=== PATIENT | male | born 1990 | race Caucasian/White ===

== ENCOUNTER → 2019-06-14 | Outpatient (CLI) | payer SELFPAY ==
--- NOTE | 2019-06-14 12:46 | Diagnostic Imaging Report ---
PROCEDURE: MRI lumbar spine. TECHNIQUE: Multiplanar, multisequence MRI of the lumbar spine was performed without contrast. INDICATION: Low back pain. Left-sided sciatica. COMPARISON: None. FINDINGS: 5 lumbar type vertebral bodies are visualized with the last well-formed disc space designated L5-S1. No acute fracture or dislocation is seen in the lumbar spine. Alignment is anatomic. Vertebral heights and disc spaces are well-maintained. The bone marrow signal is normal. The conus terminates at the T12-L1 level. No masses are seen associated with the conus or nerve roots of the cauda equina. No epidural collections are identified. Mild degenerative changes are seen in the lumbar spine with disc bulges, facet hypertrophy, and buckling of the ligamentum flavum. T12-L1: No significant spinal canal or foraminal stenosis. L1-L2: No significant spinal canal or foraminal stenosis. L2-L3: No significant spinal canal or foraminal stenosis. L3-L4: Broad-based disc bulge with superimposed central disc protrusion, facet hypertrophy, and buckling of ligamentum flavum results in uaru-fw-jorjdmtw spinal canal narrowing and moderate left and qdxd-ec-nnxialso right foraminal narrowing. L4-L5: Broad-based disc bulge, facet hypertrophy, and buckling of the ligamentum flavum results in no significant spinal canal narrowing and mild right and moderate left foraminal stenosis. L5-S1: Broad-based disc bulge and superimposed right paracentral disc protrusion with annular fissure, facet hypertrophy, and buckling of the ligamentum flavum results in [id number]-[id number] right lateral recess stenosis, no significant spinal canal narrowing and moderate left and brcksxia-vh-asfxie right foraminal stenosis. Paravertebral soft tissues are unremarkable. IMPRESSION: 1. No acute fracture or dislocation in the lumbar spine. 2. Multilevel degenerative changes in the lumbar spine, greatest at L3-L4 and L5-S1. Dictated by: Dictated on workstation # [id number]
== END ==
LOC: RAD 11:08
PROVIDERS: ATTEND Nurse Practitioner Community Health
DX: M54.42 Lumbago with sciatica, left side (principal); M47.897 Other spondylosis, lumbosacral region
CPT/HCPCS: 72148

== ENCOUNTER 2021-05-25 19:30 | Emergency (ER) | payer SELFPAY ==
[~2021-05-25] VITALS: Ht 183 cm; Wt 109.0 kg
[2021-05-25 20:02] VITALS: BP 138/100
[2021-05-25] MEDS ORDERED: CLINDAMYCIN 150 MG (CLEOCIN) CAP PO STA (20:06)
--- NOTE | 2021-05-25 20:06 | ED EENT ---
History of Present Illness General Stated Complaint: SEVERE TOOTH ACHE Source: patient Exam Limitations: no limitations (JOVANNY CASTANON) History of Present Illness Date Seen by Provider: May 25, 2021 Time Seen by Provider: 20:04 Initial Comments Patient is a 31-year-old male who presents ED with right lower dental pain. Patient reports pain since this morning. He reports decay to his right lower molars. Patient with a sharp shooting pain into his neck and ear. Pain with eating. Denies any facial swelling or redness. History of similar pain over the past 2 years. Patient acknowledges that he needs to see a dentist. No pain improvement with anti-inflammatories. Denies fever, chills, sore throat, headache, dizziness. (JOVANNY CASTANON) Allergies and Home Medications Allergies Coded Allergies: No Known Drug Allergies (Unverified , 05/25/21) Patient Home Medication List Home Medication List Reviewed: Yes (JOVANNY CASTANON) Hydrocodone/Acetaminophen (Hydrocodone-Acetamin 7.5-325) 1 Each Tablet, 1 EACH PO Q4H PRN for PAIN-MODERATE (5-7) Prescribed by: MARIA INES ALLEN on 05/25/212038 Penicillin V Potassium (Penicillin V Potassium) 500 Mg Tablet, 500 MG PO QID Prescribed by: MARIA INES ALLEN on 05/25/212037 Review of Systems Review of Systems Constitutional: No chills, No diaphoresis, No fever, No malaise Eyes: Denies Blindness Ears: Denies Dizziness Nose: denies congestion, denies bloody discharge, denies clear discharge Mouth: denies clots; pain, swelling; denies bloody discharge Throat: denies neck stiffness Respiratory: No cough, No short of breath, No stridor, No wheezing Gastrointestinal: No see HPI, No abdominal pain, No diarrhea, No nausea, No vomiting Musculoskeletal: No back pain, No joint pain Skin: No change in color, No change in hair/nails (JOVANNY CASTANON) All Other Systems Reviewed Negative Unless Noted: Yes (JOVANNY CASTANON) Physical Exam Vital Signs Vital Signs - First Documented 05/25/21 20:02 Temp 36.6 Pulse 86 Resp 16 B/P (MAP) 138/100 (113) Pulse Ox 97 O2 Delivery Room Air (JOSE,MACHO K DO) Height, Weight, BMI Height: '" Weight: lbs. oz. kg; BMI Method: General Appearance: WD/WN, no apparent distress Nose: normal inspection Mouth/Throat: other (Decay noted right lower molars. Surrounding gum swelling. No periodontal abscess.) Cardiovascular: regular rate, rhythm, no edema, no gallop, no JVD Respiratory: chest non-tender, lungs clear, normal breath sounds, no respiratory distress Gastrointestinal: normal bowel sounds, non tender, soft Skin: normal color, warm/dry (JOVANNY ACSTANON) Procedures/Interventions Dental Procedures: (JOVANNY CASTANON) Progress/Results/Core Measures Results/Orders Vital Signs/I&O 05/25/21 20:02 Temp 36.6 Pulse 86 Resp 16 B/P (MAP) 138/100 (113) Pulse Ox 97 O2 Delivery Room Air (JOSE,MACHO K DO) Departure Communication (Admissions) Consent to patient for dental block. Bupivacaine 0.5% 25-gauge needle with 3 ml used for a inferior alveolar block and local infiltrate of the right lower third and second molar. Patient tolerated procedure well. Pain improved. Patient was given an oral dose of pain medication and antibiotic. We will provide a few days worth of pain medication however patient would benefit with antibiotics. Patient needs to follow-up with a dentist. Patient was in moderate distress on arrival and had notable improvement. Extensive decay noted with redness and swelling around the gums suggesting infection. Concerning for dental apical abscess. No evidence of periodontal abscess. No active drainage. (JOVANNY CASTANON) Impression Primary Impression: Pain, dental Disposition: 01 HOME, SELF-CARE Condition: Stable Departure-Patient Inst. Decision time for Depature: 20:36 (JOVANNY CASTANON) Referrals: [facility] [place],LOCAL PHYSICIAN (PCP) Primary Care Physician Patient Instructions: Dental Pain Scripts Penicillin V Potassium (Penicillin V Potassium) 500 Mg Tablet 500 MG PO QID for 7 Days, #28 TAB Prov: JOVANNY CASTANON 05/25/21 Hydrocodone/Acetaminophen (Hydrocodone-Acetamin 7.5-325) 1 Each Tablet 1 EACH PO Q4H PRN for PAIN-MODERATE (5-7), #10 TAB Prov: JOVANNY CASTANON 05/25/21 ATTENDING PHYSICIAN NOTE: I WAS PHYSICALLY PRESENT ER PHYSICIAN WHEN THIS PATIENT WAS IN ER, BUT I WAS NOT INVOLVED IN ANY DECISION MAKING OR ANY CARE OF THIS PATIENT. (MACHO GARCIA DO) JOVANNY CASTANON May 25, 2021 20:06 MACHO GARCIA DO May 26, 2021 00:01
[2021-05-25] MEDS ORDERED: PENI500T PO (20:38)
[2021-05-25] MEDS ORDERED: HYDR-3817 PO (20:38)
[2021-05-25] MEDS ORDERED: HYDROcodone/APAP 7.5 MG/325 MG (LORTAB, LORCET PLUS) TABLET PO STA (20:40)
== END 2021-05-25 20:56 | disposition home or self-care (01) ==
LOC: EDUNIT# 19:30 → ER 19:33
DX: K08.89 Other specified disorders of teeth and supporting structures (principal)
CPT/HCPCS: 99283